=== PATIENT | female | born 1965 | race Caucasian/White ===

== ENCOUNTER 2024-02-05 07:49 | Day surgery (SDC) | payer OTHER ==
[~2024-02-05] VITALS: Ht 157.5 cm; Wt 101.2 kg
[2024-02-05] MEDS ORDERED: fentaNYL citrate 0.05 MG/ML VIAL ONE (09:55)
[2024-02-05] MEDS: fentaNYL citrate 0.05 MG/ML VIAL IVP ONE (10:17)
[2024-02-05] MEDS: LIDOCAINE 2% 100 MG/5 ML UJET TP ONE (10:28)
== END 2024-02-05 11:46 | disposition home or self-care (01) ==
LOC: MDS 07:49 → MMU 07:51 → MDS 11:46
PROVIDERS: ATTEND Internal Medicine Gastroenterology
DX: Z12.11 Encounter for screening for malignant neoplasm of colon (principal); K57.30 Diverticulosis of large intestine without perforation or abscess without bleeding; I10 Essential (primary) hypertension; E11.9 Type 2 diabetes mellitus without complications; Z79.01 Long term (current) use of anticoagulants; Z79.899 Other long term (current) drug therapy
CPT/HCPCS: 44388; 45330; 82948; J3010